=== PATIENT | female | born 1980 | race Caucasian/White ===

== ENCOUNTER 2021-06-26 14:42 | Emergency (ER) | payer BC ==
[2021-06-26] MEDS ORDERED: IBUPROFEN 600 MG TAB PO ONE (15:30)
== END 2021-06-26 15:48 | disposition home or self-care (01) ==
LOC: ER 14:52
DX: S62.366A Nondisplaced fracture of neck of fifth metacarpal bone, right hand, initial encounter for closed fracture (principal); W18.39XA Other fall on same level, initial encounter; Y93.01 Activity, walking, marching and hiking
CPT/HCPCS: 99283